=== PATIENT | female | born 1970 | race Caucasian/White ===

== ENCOUNTER 2020-05-30 10:51 | Outpatient (REF) | payer OTHER, SELFPAY | END 2020-05-30 10:52 | disposition home or self-care (01) | LOC: HO.LAB 10:51 | PROVIDERS: Visit Provider Internal Medicine | DX: Z20.828 Contact with and (suspected) exposure to other viral communicable diseases (principal) | CPT/HCPCS: 36415; C9803; U0003 ==

== ENCOUNTER 2020-08-03 07:42 | Outpatient (REF) | payer OTHER, SELFPAY ==
[2020-08-03 08:09] LABS: MANUAL DIFF FLAG NO
[2020-08-03 08:19] LABS: Basophils Percent Auto 0.7 % (0-2); Eosinophils Absolute Auto 0.2 X10*3/uL (0.0-0.4); Eosinophils Percent Auto 2.6 % (0-4); Hematocrit 39.8 % (37-47); Imm Gran Abs Auto 0.01 X10*3/uL (0.00-0.03); Imm Gran Pct Auto 0.2 % (0.0-0.4); Lymphocytes Absolute Auto 1.6 X10*3/uL (1.2-4.9); Lymphocytes Percent Auto 27.5 % (20-40); Mean Corpuscular HGB Conc 32.7 g/dl (31.0-35.0); Mean Platelet Volume 9.5 fL (9.4-12.3); Monocytes Absolute Auto 0.3 X10*3/uL (0.1-1.2); Monocytes Percent Auto 5.3 % (2-11); Neutrophils Absolute Auto 3.6 X10*3/uL (2.0-8.3); Neutrophils Percent Auto 63.7 % (45-73); Platelet Count 290 X10*3/uL (160-400); Red Blood Count 4.19 X10*6/uL (4.20-5.50); Red Cell Distribution Width 11.9 % (11.0-16.0); White Blood Count 5.7 X10*3/uL (4.8-10.8)
[2020-08-03 08:39] LABS: Alanine Aminotransferase 13 U/L (0-31); Albumin Level 4.3 g/dL (3.5-5.0); Alkaline Phosphatase 72 U/L (39-117); Anion Gap 12 (12-20); Aspartate Amino Transferase 14 U/L (5-31); Bilirubin Total 0.6 mg/dL (0.0-1.0); Blood Urea Nitrogen 14 mg/dL (9-16); Calcium 9.1 mg/dL (8.4-10.2); Carbon Dioxide 26 mmol/L (22-29); Chloride 104 mmol/L (96-108); Cholesterol 226 mg/dL; Estimated Glomerular Filt Rate > 60; Glucose Fasting 95 mg/dL (60-99); HDL Cholesterol 65 mg/dL; LDL Cholesterol Calculated 139 mg/dl; Potassium 4.3 mmol/L (3.3-5.1); Sodium 138 mmol/L (135-145); Total Protein 7.7 g/dL (6.5-8.0); Triglycerides 110 mg/dL
[2020-08-03 11:10] LABS: SARS COV2 IgG Positive (Negative)
[2020-08-04 06:17] LABS: Rubella IgG Antibody 4.03 Index; Rubeola IgG (Measles) >300.00 AU/mL
[2020-08-05 08:06] LABS: HBS Num1 0.32 mIU/mL (0-7.99); HBc Num1 0.08 S/CO (0.00-0.79); Hepatitis B Core Antibody Nonreactive (Nonreactive); ~Hepatitis B Surface Antibody NONREACTIVE (Nonreactive)
[2020-08-05 08:25] LABS: HBsAGNum1 0.18 S/CO (0.00-0.99); Hepatitis B Surface Antigen Negative (Negative)
[2020-08-05 19:46] LABS: TS Negative Control Passed; TS Panel A 0; TS Panel B 0; TS Positive Control Passed; TSpotTB Negative (SeeBelow)
== END 2020-08-03 07:43 | disposition home or self-care (01) ==
LOC: HO.LAB 07:42
PROVIDERS: PCP Internal Medicine; Visit Provider Internal Medicine
DX: Z01.419 Encounter for gynecological examination (general) (routine) without abnormal findings (principal); Z01.84 Encounter for antibody response examination; R23.2 Flushing; N92.6 Irregular menstruation, unspecified; E66.3 Overweight; E78.5 Hyperlipidemia, unspecified
CPT/HCPCS: 36415; 80053; 80061; 84443; 85025; 86481; 86704; 86706; 86735; 86762; 86765; 86769; 86787; 87340

== ENCOUNTER 2020-09-18 09:55 | Outpatient (REF) | payer OTHER, SELFPAY ==
--- NOTE | 2020-09-18 12:00 | MHC.AU.ANR ---
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 Ms. Todd reports that her mother complains that she doesn't hear well. She notes that about six months ago she had a popping noise in her ear and some drainage from the left ear. Ms. Todd notes that she feels she hears well most of the time. Does patient feel they have a hearing loss?: Unsure Has hearing been tested previously?: No Hearing Handicap Inventory: HHIE SCORE: 8 Based on HHIE score, patient has: No perceived hearing handicap Ear History: Recent Ear Drainage: Left ear Family History of Hearing Loss?: No Ear Infections in Childhood: Both Ears Blocked/Full Sensation in Ear(s): Left Ear Medical History: Medical History (Other): Left breast surgery in 2012 Otoscopy: Right Ear: Non-occluding cerumen Left Ear: Non-occluding cerumen Tympanometry: Tympanometry performed due to: Conductive component found in audiometric results Right Ear: Reduced Middle Ear Compliance (Type As) Left Ear: Reduced Middle Ear Compliance (Type As) Hearing Evaluation: Transducer(s) Used: Insert Earphones, Circumaural Headphones (rechecked with both insert/circumaural headphones) Method: Conventional Audiometry Stimuli Used: Pure Tones Right Ear: Description of Hearing: Moderate conductive hearing loss from 250-500 Hz, moderate mixed hearing loss at 1000 Hz, mild sensorineural hearing loss at 2000 Hz, moderate conductive hearing loss at 4000 Hz, rising to a mild hearing loss at 6000 Hz and normal hearing at 8000 Hz. Left Ear: Description of Hearing: Moderate conductive hearing loss at 250 Hz, mild conductive hearing loss at 500 Hz, moderate mixed hearing loss at 1000 Hz, mild sensorineural hearing loss at 2000 Hz, mild conductive hearing loss at 4000 Hz, rising to normal hearing at 8363-7174 Hz. Speech Recognition Threshold (SRT): Method Used: Recorded Lists Stimuli Used: Spondee Words Right Ear: 60 dBHL Left Ear: 45 dBHL Word Discrimination: Method: Recorded Lists Word Lists Used: Lista Bisil?bica ([place]) Right Ear: 100% at 80 dBHL Left Ear: 96% at 70 dBHL Interpretation of Results: Possible Carhart's notch given the dip in bone conduction thresholds to a sensorineural hearing loss at 2000 Hz. A Carhart's notch, conductive/mixed hearing loss, and reduced middle-ear compliance are all characteristic of otosclerosis. Recommendations: Audiological re-evaluation in one year. Referral to Ear, Nose, and Throat is recommended to evaluate conductive hearing loss. If medical intervention to treat Ms. Todd's hearing loss is not sought, binaural hearing aids are recommended. Diagnosis: Primary Diagnosis: H90.6 Mixed Hearing Loss, Bilateral Services Performed: Services Performed: Comprehensive Audiological Evaluation (CPT 71892) Tympanometry (CPT 19654) Signature: Provider: Rishabh Ruvalcaba, CCC-A
== END 2020-09-18 09:56 | disposition home or self-care (01) ==
LOC: HO.SH 09:55
PROVIDERS: Visit Provider Internal Medicine
DX: H90.6 Mixed conductive and sensorineural hearing loss, bilateral (principal)
CPT/HCPCS: 92557; 92567

== ENCOUNTER 2021-06-05 08:09 | Outpatient (REF) | payer OTHER, SELFPAY ==
--- NOTE | ~2021-06-05 | MM_ITS ---
EXAMINATION: MM SCREENING DIGITAL BREAST TOMOSYNTHESIS, BILATERAL CLINICAL INFORMATION: Screening. Asymptomatic. The lifetime risk of breast cancer based on the Tyrer-Cuzick Model is 10%. COMPARISON: Mammography: 11/22/2019, 11/17/2018, 10/22/2016 TECHNIQUE: Digital breast tomosynthesis is performed in both the craniocaudal and mediolateral oblique views along with computer-aided detection (CAD). Synthesized 2D images are generated from the tomosynthesis. FINDINGS: There are scattered areas of fibroglandular density (ACR BI-RADS breast composition Category b). There are no significant masses, abnormal calcifications, or other abnormalities. Parenchymal pattern is similar to prior studies. There is no developing density or architectural abnormality. There is stable circumscribed nodule upper outer right breast and small smooth nodule upper outer left breast similar to previous exam. The axilla and skin contours are unremarkable. No significant changes. MM/MM tomosynthesis screening BI IMPRESSION: No significant changes from prior studies. ASSESSMENT: BI-RADS 2: Benign RECOMMENDATION: Routine annual mammography screening. This patient's information was entered into a reminder system with a target due date for their next mammogram.
== END 2021-06-05 08:10 | disposition home or self-care (01) ==
LOC: HO.MAMMO 08:09
PROVIDERS: PCP Internal Medicine; Visit Provider Internal Medicine
DX: Z12.31 Encounter for screening mammogram for malignant neoplasm of breast (principal)
CPT/HCPCS: 77063; 77067

== ENCOUNTER 2021-10-01 09:17 | Outpatient (REF) | payer OTHER, SELFPAY ==
[2021-10-01 18:46] LABS: CT PCR NOT DETECTED (Not Detect.); NG PCR NOT DETECTED (Not Detect.)
== END 2021-10-01 09:18 | disposition home or self-care (01) ==
LOC: HO.LAB 09:17
PROVIDERS: PCP Internal Medicine; Visit Provider Advanced Practice Midwife
DX: Z01.419 Encounter for gynecological examination (general) (routine) without abnormal findings (principal); Z20.2 Contact with and (suspected) exposure to infections with a predominantly sexual mode of transmission
CPT/HCPCS: 87491; 87591

== ENCOUNTER 2022-09-06 07:43 | Outpatient (REF) | payer OTHER, SELFPAY ==
[2022-09-06 08:51] LABS: Alanine Aminotransferase 10 U/L (0-31); Albumin Level 4.1 g/dL (3.5-5.0); Alkaline Phosphatase 74 U/L (39-117); Anion Gap 11 (12-20); Aspartate Amino Transferase 12 U/L (5-31); Bilirubin Total 0.4 mg/dL (0.0-1.0); Blood Urea Nitrogen 9 mg/dL (9-16); Calcium 9.1 mg/dL (8.4-10.2); Carbon Dioxide 28 mmol/L (22-29); Chloride 108 mmol/L (96-108); Cholesterol 265 mg/dL; Estimated Glomerular Filt Rate > 60; Glucose Fasting 92 mg/dL (60-99); HDL Cholesterol 62 mg/dL; LDL Cholesterol Calculated 169 mg/dl; Potassium 4.2 mmol/L (3.3-5.1); Sodium 143 mmol/L (135-145); Triglycerides 172 mg/dL
[2022-09-08 19:53] LABS: TS Negative Control Passed; TS Panel A 0; TS Panel B 1; TS Positive Control Passed; TSpotTB Negative (Negative)
== END 2022-09-06 07:44 | disposition home or self-care (01) ==
LOC: HO.LAB 07:43
PROVIDERS: PCP Internal Medicine; Visit Provider Internal Medicine
DX: Z00.00 Encounter for general adult medical examination without abnormal findings (principal); Z11.1 Encounter for screening for respiratory tuberculosis; E78.5 Hyperlipidemia, unspecified
CPT/HCPCS: 36415; 80053; 80061; 86481